=== PATIENT | female | born 1990 | race Caucasian/White ===

== ENCOUNTER 2019-05-22 19:14 | Emergency (ER) | payer OTHER ==
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
[2019-05-22 19:21] VITALS: BP 120/69; PULSE 80; TEMP 98.2; BMI 30.5
[2019-05-22] MEDS ORDERED: METHOCARBAMOL 500 MG TABLET PO ONE (19:50)
[2019-05-22] MEDS ORDERED: NAPROXEN 500 MG TABLET (FP) PO ONE (19:50)
[2019-05-22] MEDS ORDERED: NAPROXEN 500 MG TABLET (FP) ONE (19:53)
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
== END 2019-05-22 20:25 | disposition home or self-care (01) ==
LOC: JERFT 19:14
DX: S86.811A Strain of other muscle(s) and tendon(s) at lower leg level, right leg, initial encounter (principal); M62.838 Other muscle spasm; V43.52XA Car driver injured in collision with other type car in traffic accident, initial encounter; Y93.89 Activity, other specified; Y92.488 Other paved roadways as the place of occurrence of the external cause
CPT/HCPCS: 99281-25